=== PATIENT | female | born 1995 | race African-American/Black ===

== ENCOUNTER 2016-05-04 12:33 | Emergency (ER) | payer OTHER ==
[2016-05-04 12:42] VITALS: BP 116/67
--- NOTE | 2016-05-04 15:04 | RAD ---
INDICATION: Bilateral lower extremity pain. COMPARISON: There are no prior studies available for comparison. TECHNIQUE: Multiple real-time, color flow and Doppler tracings of both lower extremities were obtained. FINDINGS: The common femoral, femoral, profunda femoral and popliteal veins all demonstrate normal compressibility, augmentation with compression and phasic response with respiration. The posterior tibial and peroneal veins demonstrate normal compressibility and augmentation with compression. IMPRESSION: NO EVIDENCE FOR DEEP VENOUS THROMBOSIS.
--- NOTE | 2016-05-05 15:43 | ED ---
Frederic Clifton Matthew, scribed for Arturo Alaniz MD on 05/04/16 at 1331 . Shortness of Breath - HPI Summary HPI Summary: A 20 y/o female presents to the ED with intermittent episodes of SOB since yesterday evening. The patient had an episode of SOB this morning, which has since resolved and the patient is not currently having SOB. Associated symptoms include lightheadedness, knee pain that intermittently moves to the ankles, hip and back pain with ambulation this morning, and chest heaviness. The patient denies anxiety and pedal edema. She changed her control medication a month ago. She tried her inhaler without relieve. She does not smoke. The patient travel back from [facility] ~3 weeks ago. PMHx: asthma - History of Current Complaint Chief Complaint: EDShortnessOfBreath Time Seen by Provider: 05/04/16 12:44 Hx Obtained From: Patient Onset/Duration: Gradual Onset, Lasting Days, Still Present Timing: Intermittent Episodes Lasting: Current Severity: None Dyspnea At: Rest Alleviating Factors: Spontaneous Resolution Associated Signs & Symptoms: Chest Pain Unrelated to Cough - described as heaviness - Allergy/Home Medications Allergies/Adverse Reactions: Allergies Allergy/AdvReac Type Severity Reaction Status Date / Time No Known Allergies Allergy Verified 05/04/16 12:39 PMH/Surg Hx/FS Hx/Imm Hx Endocrine/Hematology History: Denies: Hx Anticoagulant Therapy, Hx Diabetes, Hx Thyroid Disease Cardiovascular History: Denies: Hx Congestive Heart Failure, Hx Deep Vein Thrombosis, Hx Hypertension , Hx Myocardial Infarction, Hx Pacemaker/ICD Respiratory History: Reports: Hx Asthma Denies: Hx Chronic Obstructive Pulmonary Disease (COPD), Hx Lung Cancer, Hx Pneumonia, Hx Pulmonary Embolism GI History: Denies: Hx Gall Bladder Disease, Hx Gastrointestinal Bleed, Hx Ulcer, Hx Urosepsis History: Denies: Hx Kidney Stones, Hx Renal Disease Neurological History: Denies: Hx Dementia, Hx Migraine, Hx Seizures, Hx Transient Ischemic Attacks (TIA) Psychiatric History: Reports: Hx Anxiety, Hx Depression Denies: Hx Schizophrenia, Hx Bipolar Disorder Infectious Disease History: No Infectious Disease History: Denies: Hx Clostridium Difficile, Hx Hepatitis, Hx Human Immunodeficiency Virus (HIV), Hx of Known/Suspected MRSA, Hx Shingles, Hx Tuberculosis, Hx Known/ Suspected VRE, Hx Known/Suspected VRSA, History Other Infectious Disease, Traveled Outside the in Last 30 Days - pt was in [place] in March, came [place] 04/03/16 - Family History Known Family History: Positive: Hypertension - maternal, Diabetes - maternal - Social History Occupation: Student Alcohol Use: Occasionally Substance Use Type: Reports: None Smoking Status (MU): Never Smoked Tobacco Have You Smoked in the Last Year: No Review of Systems Constitutional: Other - lightheadedness Eyes: Negative ENT: Negative Positive: Chest Pain - described as heaviness Positive: Shortness Of Breath Gastrointestinal: Negative Genitourinary: Negative Positive: Myalgia - Knee pain taht intermittently moves to the ankles; Hip and back pain this morning . Negative: Edema - pedal Skin: Negative Neurological: Negative Psychological: Normal Negative: Anxious All Other Systems Reviewed And Are Negative: Yes Physical Exam Triage Information Reviewed: Yes Vital Signs On Initial Exam: Initial Vitals Temp Pulse Resp BP Pulse Ox 99.9 F 87 18 116/67 100 05/04/16 12:39 05/04/16 12:39 05/04/16 12:39 05/04/16 12:39 05/04/16 12:39 Vital Signs Reviewed: Yes Appearance: Positive: Well-Appearing, Well-Nourished Skin: Positive: Warm, Skin Color Reflects Adequate Perfusion, Dry Head/Face: Positive: Normal Head/Face Inspection Eyes: Positive: Normal ENT: Positive: Normal ENT inspection Neck: Positive: Supple, Nontender Respiratory/Lung Sounds: Positive: Clear to Auscultation, Breath Sounds Present Cardiovascular: Positive: RRR Abdomen Description: Positive: Nontender, Soft Bowel Sounds: Positive: Present Musculoskeletal: Positive: Other - tenderness of the common femoral canal of the right leg Neurological: Positive: Normal Psychiatric: Positive: Normal, Affect/Mood Appropriate Diagnostics - Vital Signs Vital Signs Temp Pulse Resp BP Pulse Ox 05/04/16 12:39 99.9 F 87 18 116/67 100 - Laboratory Lab Results: Lab Results 05/04/16 05/04/16 Range/Units 13:30 13:30 D-Dimer, Quantitative < 200 (Less Than 230) ng/mL Beta HCG, Quant < 0.60 mIU/mL Lab Statement: Any lab studies that have been ordered have been reviewed, and results considered in the medical decision making process. - EKG 12:39 Cardiac Rate: NL - 81 bpm EKG Rhythm: Sinus Rhythm Course/Dx - Course Assessment/Plan: A 20 y/o female presents to the ED with intermittent episodes of SOB since yesterday evening. he patient had an episode of SOB this morning, which has since resolved and the patient is not currently having SOB. She changed her control medication a month ago. She does not smoke. The patient travel back from [facility] ~3 weeks ago. Upon physical exam she had common femoral canal tenderness on the right leg. Labs results show normal d-dimer < 200. EKG shows NSR at 81 bpm. US shows no evidence for deep venous thrombosis. Her Well's criteria for PE is low moderate and therefore the d-dimer is reliable. The patient will be discharged home and follow-up with [facility]. - Diagnoses Provider Diagnoses: Dyspnea Discharge - Discharge Plan Condition: Stable Disposition: HOME Patient Education Materials: Dyspnea (ED) Referrals: [facility] CALI Pimentel [Medical Doctor] - 2 Days Additional Instructions: Please follow-up with [facility]. The documentation as recorded by the Frederic zhao Matthew accurately reflects the service I personally performed and the decisions made by , Arturo Alaniz MD.
== END 2016-05-04 15:54 | disposition home or self-care (01) ==
LOC: ED 12:33
DX: R06.00 Dyspnea, unspecified (principal); R06.02 Shortness of breath; R42 Dizziness and giddiness; M25.569 Pain in unspecified knee; R07.9 Chest pain, unspecified; M54.9 Dorsalgia, unspecified; M25.559 Pain in unspecified hip
CPT/HCPCS: 36415; 84702; 85379; 93005; 93970; 99283